=== PATIENT | female | born 1950 | race Hispanic/Latino ===

== ENCOUNTER 2018-05-02 10:02 | Outpatient (CLI) | payer MEDICARE, OTHER ==
--- NOTE | 2018-05-02 15:04 | MRI ---
LUMBAR SPINE MRI WITHOUT IV CONTRAST: History: M48.062, lumbar stenosis with neurogenic claudication. Low back pain for several years with bilateral leg pain. FINDINGS: Multiplanar planar, multisequence examination of the lumbar spine was performed. Severe disc desiccat ion changes and ligament and facet hypertrophic changes. There are some mixed, including some very mi nimal type I endplate changes at L1-2, L2-3, and L3-4. Conus medullaris region is unremarkable termin ating at L1-2. Diffuse discosteophyte changes at T12-L1 with some ventral thecal sac indention but no cord compression. L1-2: There is are Schmorl's nodes with some slight dorsal lateral thecal sac indention but no signif icant canal, lateral recess or foraminal stenosis. L2-3: Small Schmorl's node. Mild lateral recess narrowing. No significant central stenosis or foramin al stenosis. L3-4: There is some moderate lateral recess narrowing with some mild right foraminal stenosis. L4-5: There is central canal and lateral recess stenosis and severe right foraminal stenosis and mode rate left foraminal stenosis. L5-S1: There is moderately severe central canal and severe bilateral lateral recess stenosis and matt re right foraminal stenosis and moderate left foraminal stenosis. IMPRESSION: Variable severity multilevel canal, lateral recess, and foraminal stenosis most marked at L4-5 and L5 -S1. Multilevel mild type I endplate changes. Schmorl's nodes at T12-L1, L1-2, and L2-3. POS: ALY
== END 2018-05-02 10:03 | disposition home or self-care (01) ==
LOC: BICMRI 10:02
PROVIDERS: ATTEND Neurological Surgery
DX: M48.062 Spinal stenosis, lumbar region with neurogenic claudication (principal); M48.07 Spinal stenosis, lumbosacral region
CPT/HCPCS: 72148

== ENCOUNTER 2021-11-09 11:17 | Emergency (ER) | payer OTHER, MEDICARE ==
[2021-11-09] MEDS ORDERED: Morphine 4 MG/ML VIAL ONE (11:57)
[2021-11-09] MEDS ORDERED: Ondansetron PF 4 MG/2 ML Vial ONE (11:57)
[2021-11-09] MEDS ORDERED: Boostrix 0.5 ML (Tdap) VIAL ONE (11:57)
[2021-11-09 12:33] LABS: #Eosinphils 0.1 thou/uL (0.0-0.7); #Lymphocytes 0.9 thou/uL (1.20-3.40); #Monocytes 0.5 thou/uL (0.11-0.59); #Neutrophils 5.3 thou/uL (1.40-6.50); %Basophils 0.2 % (0.0-1.0); %Lymphocytes 13.1 % (21.0-51.0); %Monocytes 7.6 % (0.0-10.0); %Neutrophils 78.1 % (42.0-75.0); Hemoglobin 13.7 g/dL (12.0-16.0); Mean Corpuscular HGB CONC 32.3 g/dL (32.0-36.0); Mean Corpuscular Hemoglobin 30.9 pg (27.0-31.0); Mean Corpuscular Volume 95.6 fL (78.0-98.0); Mean Platelet Volume 8.7 fL (7.4-10.4); Platelet Count 164 thou/uL (130-400); RBC Distribution Width 12.2 % (11.5-14.5); Red Blood Cell (RBC) Count 4.42 mill/uL (4.20-5.40); White Blood Cell (WBC) Count 6.8 thou/uL (4.8-10.8)
[2021-11-09 12:59] LABS: ALT (SGPT) 14 U/L (8-55); AST (SGOT) 17 U/L (5-34); Albumin 3.6 g/dL (3.4-4.8); Alkaline Phosphatase 96 U/L (40-110); Anion Gap 15 mmol/L (10-20); BUN (Urea Nitrogen) 17 mg/dL (9.8-20.1); Bilirubin, Total 1.4 mg/dL (0.2-1.2); Calc. Creatinine Clearance 0 mL/min (70-130); Calcium 8.9 mg/dL (7.8-10.44); Carbon Dioxide 24 mmol/L (23-31); Chloride 104 mmol/L (98-107); Estimated GFR 79; Globulin 3.2 g/dL (2.4-3.5); Glucose 140 mg/dL (83-110); Potassium 4.2 mmol/L (3.5-5.1); Protein, Total 6.8 g/dL (5.8-8.1); Sodium 139 mmol/L (136-145)
== END 2021-11-09 19:59 | disposition home or self-care (01) ==
LOC: ERS 11:17
DX: S62.102A Fracture of unspecified carpal bone, left wrist, initial encounter for closed fracture (principal); S00.81XA Abrasion of other part of head, initial encounter; S20.211A Contusion of right front wall of thorax, initial encounter; R91.1 Solitary pulmonary nodule; I10 Essential (primary) hypertension; E78.5 Hyperlipidemia, unspecified; E10.9 Type 1 diabetes mellitus without complications; E78.00 Pure hypercholesterolemia, unspecified; W01.0XXA Fall on same level from slipping, tripping and stumbling without subsequent striking against object, initial encounter
CPT/HCPCS: 29125; 36415; 70450; 70486; 72125; 80053; 85025; 90471; 90715; 93005; 96374; 96375; J2270; J2405

== ENCOUNTER 2022-02-08 08:24 | Outpatient (CLI) | payer MEDICARE, OTHER ==
[2022-02-08] MEDS ORDERED: Iopamidol-370 76% 500 ML 1 ML ONE (10:36)
== END 2022-02-08 08:25 | disposition home or self-care (01) ==
LOC: BICCT 08:24
PROVIDERS: ATTEND Internal Medicine
DX: R93.89 Abnormal findings on diagnostic imaging of other specified body structures (principal); E11.9 Type 2 diabetes mellitus without complications; R91.1 Solitary pulmonary nodule; E04.2 Nontoxic multinodular goiter
CPT/HCPCS: 71260; Q9967

== ENCOUNTER 2022-03-24 12:09 | Outpatient (CLI) | payer MEDICARE, OTHER | END 2022-03-24 12:10 | disposition home or self-care (01) | LOC: ULT 12:09 | PROVIDERS: ATTEND Internal Medicine | DX: E04.1 Nontoxic single thyroid nodule (principal) | CPT/HCPCS: 76536 ==

== ENCOUNTER 2023-03-03 13:20 | Outpatient (CLI) | payer MEDICARE, OTHER | END 2023-03-03 13:21 | disposition home or self-care (01) | LOC: BICCT 13:20 | PROVIDERS: ATTEND Internal Medicine Critical Care Medicine | DX: R91.8 Other nonspecific abnormal finding of lung field (principal) | CPT/HCPCS: 71250 ==

== ENCOUNTER 2023-10-18 10:26 | Outpatient (CLI) | payer MEDICARE, OTHER | END 2023-10-18 10:27 | disposition home or self-care (01) | LOC: BICULT 10:26 | PROVIDERS: ATTEND Otolaryngology Otolaryngic Allergy | DX: E04.2 Nontoxic multinodular goiter (principal) | CPT/HCPCS: 76536 ==

== ENCOUNTER 2024-02-28 08:32 | Outpatient (CLI) | payer MEDICARE, OTHER | END 2024-02-28 08:33 | disposition home or self-care (01) | LOC: BICCT 08:32 | PROVIDERS: ATTEND Internal Medicine Critical Care Medicine | DX: R91.8 Other nonspecific abnormal finding of lung field (principal) | CPT/HCPCS: 71250 ==

== ENCOUNTER 2024-05-01 12:43 | Outpatient (CLI) | payer MEDICARE, OTHER | END 2024-05-01 12:44 | disposition home or self-care (01) | LOC: BICULT 12:43 | PROVIDERS: ATTEND Internal Medicine Gastroenterology | DX: Z12.11 Encounter for screening for malignant neoplasm of colon (principal); R10.9 Unspecified abdominal pain; R63.4 Abnormal weight loss; Z80.0 Family history of malignant neoplasm of digestive organs | CPT/HCPCS: 76705 ==